=== PATIENT | male | born 1965 | race Caucasian/White ===

== ENCOUNTER 2019-06-26 06:16 | Day surgery (SDC) | payer OTHER ==
[2019-06-26] MEDS ORDERED: LIDOCAINE 100 MG SYRINGE (07:08)
[2019-06-26] MEDS ORDERED: PROPOFOL 40 ML (07:08)
== END 2019-06-26 11:24 | disposition home or self-care (01) ==
LOC: GIL 06:16
DX: Z12.11 Encounter for screening for malignant neoplasm of colon (principal); K64.8 Other hemorrhoids
CPT/HCPCS: 45378